=== PATIENT | male | born 1985 | race American Indian/Alaskan Native ===

== ENCOUNTER 2017-09-04 13:04 | Emergency (ER) | payer OTHER ==
[2017-09-04 13:21] VITALS: BP 106/63
[2017-09-04] MEDS ORDERED: TORADOL IM ONE (14:35)
--- NOTE | 2017-09-04 14:37 | Emergency Department Report ---
ED Upper Extremity Inj HPI - General Chief Complaint: Extremity Injury, Upper Stated Complaint: RIGHT ARM INJURY Time Seen by Provider: 09/04/17 14:22 Source: patient Mode of arrival: Ambulatory Limitations: No Limitations - History of Present Illness Initial Comments: 32-year-old male with no significant past medical history presents to the hospital complaining of continued pain and swelling to right forearm. 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 Patient was able to slip his arm out before the car fell all the way on his arm but did sustain an abrasion to the right forearm. Patient states he' s taking Tylenol but still has pain and localized swelling to this area. Full range of motion reported. Patient is left-hand dominant. Pain is rated 6/10 in intensity, aching, constant, worse palpation and movement. - Related Data Previous Rx's Medication Instructions Recorded Last Taken Type Acetaminophen/Codeine [Tylenol #3] 1 tab PO Q6H PRN #15 tab 06/12/15 Unknown Rx Ibuprofen [Motrin 800 MG tab] 800 mg PO Q8HR PRN #30 tablet 06/12/15 Unknown Rx Sulfamethoxazole/Trimethoprim 1 each PO BID #20 tablet 06/12/15 Unknown Rx [Bactrim DS TAB] Ibuprofen [Motrin] 600 mg PO Q8H PRN #30 tablet 09/04/17 Unknown Rx Allergies Allergy/AdvReac Type Severity Reaction Status Date / Time No Known Allergies Allergy Verified 06/12/15 17:40 ED Review of Systems ROS: Stated complaint: RIGHT ARM INJURY Other details as noted in HPI Comment: All other systems reviewed and negative ED Past Medical Hx - Past Medical History Previous Medical History?: No - Surgical History Past Surgical History?: No - Social History Smoking Status: Current Every Day Smoker Substance Use Type: Marijuana - Medications Home Medications: Home Medications Medication Instructions Recorded Confirmed Last Taken Type Acetaminophen/Codeine [Tylenol #3] 1 tab PO Q6H PRN #15 tab 06/12/15 Unknown Rx Ibuprofen [Motrin 800 MG tab] 800 mg PO Q8HR PRN #30 tablet 06/12/15 Unknown Rx Sulfamethoxazole/Trimethoprim 1 each PO BID #20 tablet 06/12/15 Unknown Rx [Bactrim DS TAB] Ibuprofen [Motrin] 600 mg PO Q8H PRN #30 tablet 09/04/17 Unknown Rx ED Physical Exam - General Limitations: No Limitations - Other Other exam information: General: No limitations, patient is alert in no acute distress Head exam: Atraumatic, normocephalic Eyes exam: Normal appearance ENT: Moist mucous membrane, normal oropharynx Neck exam: Normal inspection, full range of motion, no meningismus nontender Respiratory exam: Clear to auscultation bilateral, no wheezes, rales, crackles Cardiovascular: Normal rate and rhythm, normal heart sounds Abdomen: Soft, nondistended, and nontender, with normal bowel sounds, no rebound, or guarding Extremity: Full range of motion without difficulty or pain, no deformity, localized swelling to right forearm area of abrasion without signs of erythema, warmth, or drainage. Back: Normal Inspection, full range of motion, no tenderness Neurologic: Alert, oriented x3, cranial nerves intact, no motor or sensory deficit Psychiatric: normal affect, normal mood Skin: 5 cm superficial linear abrasion to right forearm ED Course Vital Signs 09/04/17 13:18 Temperature 99.8 F H Pulse Rate 83 Respiratory 22 Rate Blood Pressure 106/63 O2 Sat by Pulse 96 Oximetry - Reevaluation(s) Reevaluation #1: 09/04/17 14:37 Toradol for pain ED Medical Decision Making - Medical Decision Making Patient has very good range of motion without difficulty. Abrasion is superficial. No signs of cellulitis. Localized swelling suggestive of contusion. Patient has not been using ice only taken Tylenol. Patient was discharged home with forearm contusion diagnosis and further symptomatic treatment and outpatient follow-up - Differential Diagnosis contusion, abrasion, fracture Critical Care Time: No Critical care attestation.: If time is entered above; I have spent that time in minutes in the direct care of this critically ill patient, excluding procedure time. ED Disposition Clinical Impression: Abrasion of skin, Contusion of right forearm Disposition: DC-01 TO HOME OR SELFCARE Is pt being admited?: No Does the pt Need Aspirin: No Condition: Stable Instructions: Contusion in Adults (ED), Abrasion (ED) Additional Instructions: Take the medication as prescribed. Follow-up with the primary care doctor or clinic provided. Return is symptoms worsen as indicated by your discharge instructions. Prescriptions: Ibuprofen [Motrin] 600 mg PO Q8H PRN #30 tablet PRN Reason: Pain Referrals: [facility] [Provider Group] - 3-5 Days (Primary care clinic) ASIA ABREU MD [Staff Physician] - 3-5 Days (Primary care doctor) Time of Disposition: 14:39
== END 2017-09-04 14:50 | disposition home or self-care (01) ==
LOC: ED 13:04
DX: S50.11XA Contusion of right forearm, initial encounter (principal); F12.90 Cannabis use, unspecified, uncomplicated; F17.200 Nicotine dependence, unspecified, uncomplicated; X58.XXXA Exposure to other specified factors, initial encounter; Y93.89 Activity, other specified; Y99.8 Other external cause status; Y92.89 Other specified places as the place of occurrence of the external cause
CPT/HCPCS: 96372; 99282; J1885

== ENCOUNTER 2018-08-27 10:30 | Emergency (ER) | payer OTHER ==
--- NOTE | 2018-08-27 11:24 | Emergency Department Report ---
Blank Doc - Documentation Documentation: pt states he feels constipated states had one small BM today +periumbilical abd pain +n/v- one episode has not taken anything No PMHx no allergies +smoker non drinker +marijuana
[2018-08-27 11:25] VITALS: BP 122/73
[2018-08-27] MEDS ORDERED: ZOFRAN ODT PO ONE (11:57)
--- NOTE | 2018-08-27 12:11 | XRay Report ---
ABDOMEN, 2 views: History: Constipation. There is no evidence of free air beneath the diaphragms. The gas pattern within the abdomen is unremarkable. There is no evidence of bowel dilatation, significant air-fluid levels, or pathologic calcifications. Organ shadows are unremarkable. IMPRESSION: Unremarkable abdomen.
--- NOTE | 2018-08-27 12:30 | Emergency Department Report ---
Vomiting/Diarrhea - HPI Chief Complaint: Abdominal Pain Stated Complaint: CONSTIPATED Time Seen by Provider: 08/27/18 11:23 Duration: 5 Days Severity: moderate Nausea/Vomiting Severity: Mild Diarrhea Severity: Moderate Pain Severity: None Symptoms: Yes Watery Diarrhea (patient initially started for constipation however the patient mentioned that he was constipating on himself. When asked for clarification patient states he is constipating a lot. Newly the patient is describing diarrhea at this time), Yes Able to Tolerate Fluids, No Bloody diarrhea, No Fever, No Recent Unusual Foods, No Recent Untreated Water, No Recent use of Antibiotics, No Family w/ Similar Symptoms, No Contacts w/ Similar Symptoms, No Rash, No Hematuria, No Recent URI Symptoms ED Review of Systems ROS: Stated complaint: CONSTIPATED Other details as noted in HPI Comment: All other systems reviewed and negative ED Past Medical Hx - Past Medical History Previous Medical History?: No - Surgical History Past Surgical History?: No - Social History Smoking Status: Never Smoker Substance Use Type: None - Medications Home Medications: Home Medications Medication Instructions Recorded Confirmed Last Taken Type Acetaminophen/Codeine [Tylenol #3] 1 tab PO Q6H PRN #15 tab 06/12/15 Unknown Rx Ibuprofen [Motrin 800 MG tab] 800 mg PO Q8HR PRN #30 tablet 06/12/15 Unknown Rx Sulfamethoxazole/Trimethoprim 1 each PO BID #20 tablet 06/12/15 Unknown Rx [Bactrim DS TAB] Ibuprofen [Motrin] 600 mg PO Q8H PRN #30 tablet 09/04/17 Unknown Rx Dicyclomine [Bentyl] 20 mg PO QID #10 tablet 08/27/18 Unknown Rx Diphenoxylate/Atropine [Lomotil] 1 tab PO Q4H PRN #10 tablet 08/27/18 Unknown Rx Ondansetron [Zofran Odt] 4 mg PO Q8HR #10 tab.rapdis 08/27/18 Unknown Rx Vomiting Diarrhea Exam - Exam General: Vital signs noted. No distress. Alert and acting appropriately. HEENT: Yes Moist Mucous Membranes, No Pharyngeal Erythema, No Pharyngeal Exudates, No Rhinorrhea, No Conjuctival Injection, No Frontal Tenderness, No Maxillary Tenderness Neck: No Adenopathy, No Rigidity Lungs: Yes Clear Lung Sounds, Yes Good Air Exchange, No Wheezes, No Stridor, No Cough, No Nasal Flaring, No Retractions, No Use of Accessory Muscles Heart exam: Regular: Yes, Murmur: No, Tachycardia: No Abdomen: Tenderness: No, Peritoneal Signs: No, Distention: No, Hyperactive Bowel sounds: No Skin exam: Rash: No, Edema: No, Normal turgor: Yes Neurologic: Alert and oriented, no deficits. Musculoskeletal: Unremarkable. ED Course Vital Signs 08/27/18 08/27/18 11:23 12:10 Temperature 98 F Pulse Rate 78 Respiratory 18 16 Rate Blood Pressure 122/73 O2 Sat by Pulse 100 Oximetry ED Medical Decision Making - Radiology Data [facility] [address] [place] [address] XRay Report Signed Patient: LIANET BURROWS MR#: [id number] : 1985 Acct:[id number] Age/Sex: 33 / M ADM Date: 08/27/18 Loc: ED Attending Dr: Ordering Physician: RAMÍREZ PRAKASH Date of Service: 08/27/18 Procedure(s): XR abdomen 2V Accession Number(s): [id number] cc: RAMÍREZ PRAKASH Fluoro Time In Minutes: ABDOMEN, 2 views: History: Constipation. There is no evidence of free air beneath the diaphragms. The gas pattern within the abdomen is unremarkable. There is no evidence of bowel dilatation, significant air-fluid levels, or pathologic calcifications. Organ shadows are unremarkable. IMPRESSION: Unremarkable abdomen. Transcribed By: TTR Dictated By: DONATO PERALTA JR, MD Electronically Authenticated By: DONATO PERALTA JR, MD Signed Date/Time: 08/27/18 1206 DD/ 1205 TD/TT: 08/27/18 1206 - Medical Decision Making Patient with several days of diarrhea and one episode of nausea vomiting today. Patient given meds for symptomatic relief. Patient has no abdominal pain has normal bowel sounds and no abdominal distention. Patient is afebrile. Patient likely with irritation from something that he's eaten or viral gastroenteritis Critical care attestation.: If time is entered above; I have spent that time in minutes in the direct care of this critically ill patient, excluding procedure time. ED Disposition Clinical Impression: Viral gastroenteritis Disposition: DC-01 TO HOME OR SELFCARE Is pt being admited?: No Does the pt Need Aspirin: No Condition: Stable Instructions: Gastroenteritis (ED) Referrals: SHANIQUE ASKEW MD [Referring] - 3-5 Days Time of Disposition: 12:29
== END 2018-08-27 12:39 | disposition home or self-care (01) ==
LOC: ED 10:30
DX: A08.4 Viral intestinal infection, unspecified (principal)
CPT/HCPCS: 74019; 99283; Q0162

== ENCOUNTER 2018-10-24 11:08 | Emergency (ER) | payer OTHER ==
--- NOTE | 2018-10-24 11:17 | Event Note ---
ED Screening Note Date of service: 10/24/18 Time: 11:14 ED Screening Note: This is a 33 y.o. M. that presents to the ER with dysuria & penile discharge since yesterday. Denies abdominal pain, back pain, fever, chills, testicular swelling or pain. This initial assessment/diagnostic orders/clinical plan/treatment(s) is/are subject to change based on patients health status, clinical progression and re- assessment by fellow clinical providers in the ED. Further treatment and workup at subsequent clinical providers discretion. Patient/guardian urged not to elope from the ED as their condition may be serious if not clinically assessed and managed. Initial orders include: UA & GC
[2018-10-24 11:18] VITALS: BP 120/67
--- NOTE | 2018-10-24 11:49 | Emergency Department Report ---
Chief Complaint: Urogenital-Male Stated Complaint: DISCHARGE Time Seen by Provider: 10/24/18 11:14 - HPI History of Present Illness: This is a 33-year-old male healthy looking normal prior medical history presents easy stating that he thinks may have exposed to STD. Patient presents with white penile discharge that he states he noticed yesterday. Patient denies serious fistula/nausea vomiting this abdominal pain/pelvic pain/dysuria/testicular pain and swelling - ROS Review of Systems: As noted in HPI - Exam Vital Signs: Vital Signs 10/24/18 11:14 Temperature 97.9 F Pulse Rate 76 Respiratory 18 Rate Blood Pressure 120/67 [Right] O2 Sat by Pulse 98 Oximetry Physical Exam: General: No acute distress noted. MSE screening note: Focused history and physical exam performed. Due to findings the following was ordered: ED Medical Decision Making - Medical Decision Making 33-year-old male presents for STD screening I discussed the patient this is not a medical emergency and he can be seen at [facility]. Patient will go to [facility] to be evaluated. Patient states that he will call and follow-up. Pamphlet given the patient to follow-up ED Disposition for MSE Clinical Impression: Screening for STD (sexually transmitted disease) Disposition: Z-07 MED SCREENING EXAM-LEFT Is pt being admited?: No Does the pt Need Aspirin: No Condition: Stable Instructions: Sexually Transmitted Diseases (ED), Safe Sex (ED) Additional Instructions: Follow-up with [facility] for STD screening Referrals: MILTON FERRARA MD [Primary Care Provider] - 3-5 Days [facility] [Outside] - 3-5 Days [facility] [Outside] - 3-5 Days Forms: Work/School Release Form(ED) Time of Disposition: 11:46
== END 2018-10-24 11:54 | disposition left against medical advice (07) ==
LOC: ED 11:08
DX: R36.9 Urethral discharge, unspecified (principal); Z11.3 Encounter for screening for infections with a predominantly sexual mode of transmission
CPT/HCPCS: 99281

== ENCOUNTER 2018-12-30 02:54 | Emergency (ER) | payer OTHER ==
[2018-12-30 03:36] LABS: Basophils % (Auto) 0.6 % (0.0-1.8); Eosinophils % (Auto) 0.4 % (0.0-4.3); Hematocrit 44.8 % (35.5-45.6); Hemoglobin 14.9 gm/dl (11.8-15.2); Lymphocytes # (Auto) 1.6 K/mm3 (1.2-5.4); Lymphocytes % (Auto) 23.6 % (13.4-35.0); Mean Corpuscular HGB Conc 33 % (32-34); Mean Corpuscular Volume 89 fl (84-94); Monocytes # (Auto) 0.6 K/mm3 (0.0-0.8); Monocytes % (Auto) 8.7 % (0.0-7.3); Platelet Count 186 K/mm3 (140-440); Red Blood Count 5.03 M/mm3 (3.65-5.03); Red Cell Distribution Width 13.8 % (13.2-15.2)
[2018-12-30 03:40] LABS: Bilirubin,Urine NEG (Negative); Blood,Urine SM (Negative); Color,Urine Straw (Yellow); Protein,Urine <15 mg/dL mg/dL (Negative); Urobilinogen,Urine < 2.0 mg/dL (<2.0); WBC,Urine < 1.0 /HPF (0.0-6.0)
[2018-12-30 03:41] LABS: RBC,Urine < 1.0 /HPF (0.0-6.0)
[2018-12-30 03:51] LABS: Alanine Aminotransferase 22 units/L (7-56); Albumin 4.4 g/dL (3.9-5); BUN/Creatinine Ratio 9; Blood Urea Nitrogen 9 mg/dL (9-20); Calcium 8.8 mg/dL (8.4-10.2); Hemolysis Index 9
[2018-12-30] MEDS ORDERED: DICYCLOMINE 20 MG TAB PO ONE (05:41)
[2018-12-30] MEDS ORDERED: FAMOTIDINE 20 MG TAB PO ONE (05:41)
[2018-12-30] MEDS ORDERED: ONDANSETRON 4 MG ODT TAB PO ONE (05:41)
--- NOTE | 2018-12-30 06:11 | Emergency Department Report ---
ED N/V/D HPI - General Chief complaint: Abdominal Pain Stated complaint: VOMITING FOR 2 DAYS Source: patient Mode of arrival: Ambulatory Limitations: No Limitations - History of Present Illness Initial comments: Patient is a 33-year-old -[place] male with no past medical history who presents to the ED with complaint of acute onset persistent nausea, vomiting and mildly diffuse abdominal pain for the last 12 hours after eating at a restaurant. Patient states that the pain is mild but in nausea and vomiting has been persistent and intermittent. Patient states that the last time he had nausea and vomiting episode was over 6 hours ago. Patient denies fever, chills, diarrhea, chest pain, shortness of breath, dizziness, syncope, cough, dysuria, urinary frequency and urgency, hematemesis or hematochezia. MD complaint: nausea, vomiting, abdominal pain -: Sudden, hour(s) (12) Description of Vomiting: food contents Associated Abdominal Pain: Yes (MILDLY DIFFUSE) Location: diffuse Radiation: none Severity: mild Pain Scale: 1 Quality: aching, dull Consistency: intermittent Improves with: none Worsens with: none Context: possible food poisoning Associated Symptoms: denies other symptoms, loss of appetite, nausea/vomiting. denies: myalgias, cough, diaphoresis, fever/chills, headaches, malaise, shortness of breath, syncope - Related Data Previous Rx's Medication Instructions Recorded Last Taken Type Acetaminophen/Codeine [Tylenol #3] 1 tab PO Q6H PRN #15 tab 06/12/15 Unknown Rx Ibuprofen [Motrin 800 MG tab] 800 mg PO Q8HR PRN #30 tablet 06/12/15 Unknown Rx Sulfamethoxazole/Trimethoprim 1 each PO BID #20 tablet 06/12/15 Unknown Rx [Bactrim DS TAB] Ibuprofen [Motrin] 600 mg PO Q8H PRN #30 tablet 09/04/17 Unknown Rx Diphenoxylate/Atropine [Lomotil] 1 tab PO Q4H PRN #10 tablet 08/27/18 Unknown Rx Dicyclomine [Bentyl] 20 mg PO Q6H PRN #20 tablet 12/30/18 Unknown Rx Ondansetron [Zofran ODT TAB] 4 mg PO Q6HR PRN #20 tab.rapdis 12/30/18 Unknown Rx raNITIdine HCl [Zantac] 150 mg PO Q12H #20 tablet 12/30/18 Unknown Rx Allergies Allergy/AdvReac Type Severity Reaction Status Date / Time No Known Allergies Allergy Verified 10/24/18 11:16 ED Review of Systems ROS: Stated complaint: VOMITING FOR 2 DAYS Other details as noted in HPI Constitutional: denies: chills, fever Eyes: denies: eye pain, eye discharge, vision change ENT: denies: ear pain, throat pain Respiratory: denies: cough, shortness of breath, wheezing Cardiovascular: denies: chest pain, palpitations Endocrine: no symptoms reported Gastrointestinal: abdominal pain, nausea, vomiting. denies: diarrhea Genitourinary: denies: urgency, dysuria Musculoskeletal: denies: back pain, joint swelling, arthralgia Skin: denies: rash, lesions Neurological: denies: headache, weakness, paresthesias Psychiatric: denies: anxiety, depression Hematological/Lymphatic: denies: easy bleeding, easy bruising ED Past Medical Hx - Past Medical History Previous Medical History?: No - Surgical History Past Surgical History?: No - Social History Smoking Status: Current Every Day Smoker Substance Use Type: None, Marijuana - Medications Home Medications: Home Medications Medication Instructions Recorded Confirmed Last Taken Type Acetaminophen/Codeine [Tylenol #3] 1 tab PO Q6H PRN #15 tab 06/12/15 Unknown Rx Ibuprofen [Motrin 800 MG tab] 800 mg PO Q8HR PRN #30 tablet 06/12/15 Unknown Rx Sulfamethoxazole/Trimethoprim 1 each PO BID #20 tablet 06/12/15 Unknown Rx [Bactrim DS TAB] Ibuprofen [Motrin] 600 mg PO Q8H PRN #30 tablet 09/04/17 Unknown Rx Diphenoxylate/Atropine [Lomotil] 1 tab PO Q4H PRN #10 tablet 08/27/18 Unknown Rx Dicyclomine [Bentyl] 20 mg PO Q6H PRN #20 tablet 12/30/18 Unknown Rx Ondansetron [Zofran ODT TAB] 4 mg PO Q6HR PRN #20 tab.rapdis 12/30/18 Unknown Rx raNITIdine HCl [Zantac] 150 mg PO Q12H #20 tablet 12/30/18 Unknown Rx ED Physical Exam - General Limitations: No Limitations General appearance: alert, in no apparent distress - Head Head exam: Present: atraumatic, normocephalic, normal inspection - Eye Eye exam: Present: normal appearance, PERRL, EOMI Pupils: Present: normal accommodation - ENT ENT exam: Present: normal exam, normal orophraynx, mucous membranes moist, TM's normal bilaterally, normal external ear exam - Neck Neck exam: Present: normal inspection, full ROM - Respiratory Respiratory exam: Present: normal lung sounds bilaterally. Absent: respiratory distress, wheezes, chest wall tenderness, accessory muscle use, decreased breath sounds - Cardiovascular Cardiovascular Exam: Present: regular rate, normal rhythm, normal heart sounds. Absent: systolic murmur, diastolic murmur, rubs, gallop - GI/Abdominal GI/Abdominal exam: Present: soft, normal bowel sounds. Absent: tenderness, guarding, hyperactive bowel sounds - Rectal Rectal exam: Present: deferred - Extremities Exam Extremities exam: Present: normal inspection, full ROM, normal capillary refill - Back Exam Back exam: Present: normal inspection, full ROM. Absent: CVA tenderness (L), muscle spasm, paraspinal tenderness, vertebral tenderness - Neurological Exam Neurological exam: Present: alert, oriented X3, CN II-XII intact, normal gait, reflexes normal - Psychiatric Psychiatric exam: Present: normal affect, normal mood - Skin Skin exam: Present: warm, dry, intact, normal color. Absent: rash ED Course Vital Signs 12/30/18 03:10 Temperature 99.0 F Pulse Rate 85 Respiratory 16 Rate Blood Pressure 105/65 O2 Sat by Pulse 96 Oximetry - Reevaluation(s) Reevaluation #1: 12/30/18 06:13 This is a 33-year-old male who presented to the ED with complaint of persistent intermittent nausea and vomiting with mild diffuse abdominal pain for 12 hours. In the ED, patient is alert and oriented 3 and is not in distress. Lab test results were reviewed and are all unremarkable. Physical exam is unremarkable. Patient was treated with antiemetics in the ED and past oral fluid challenge. Patient playing videogames during the physical exam without making any eye contact with the Healthcare provider but answers questions appropriately. Patient was discharged home on antiemetics and advised follow-up with his primary care physician in 7-10 days for reevaluation. Patient was advised to return to the ED immediately if symptoms get worse. ED Medical Decision Making - Lab Data Result diagrams: 12/30/18 03:05 12/30/18 03:05 - Medical Decision Making This is a 33-year-old male who presented to the ED with complaint of persistent intermittent nausea and vomiting with mild diffuse abdominal pain for 12 hours. In the ED, patient is alert and oriented 3 and is not in distress. Lab test results were reviewed and are all unremarkable. Physical exam is unremarkable. Patient was treated with antiemetics in the ED and past oral fluid challenge. Patient playing videogames during the physical exam without making any eye contact with the Healthcare provider but answers questions appropriately. Patient was discharged home on antiemetics and advised follow-up with his [facility] physician in 7-10 days for reevaluation. Patient was advised to return to the ED immediately if symptoms get worse. - Differential Diagnosis viral gastroenteritis, vomiting, abdominal pain, dehydration Critical care attestation.: If time is entered above; I have spent that time in minutes in the direct care of this critically ill patient, excluding procedure time. ED Disposition Clinical Impression: Nausea and vomiting in adult, Viral gastroenteritis Abdominal pain Qualifiers: Abdominal location: generalized Qualified Code(s): R10.84 - Generalized abdominal pain Disposition: TO HOME OR SELFCARE Is pt being admited?: No Does the pt Need Aspirin: No Condition: Stable Instructions: Gastroenteritis (ED), Acute Nausea and Vomiting (ED) Additional Instructions: Maintain a clear liquid diet for the next 12-24 hours. Take medication with food, drink plenty of fluids and follow-up with your primary care physician in 7-10 days for reevaluation. Return to the ED immediately if symptoms get worse. Prescriptions: Dicyclomine [Bentyl] 20 mg PO Q6H PRN #20 tablet PRN Reason: Pain , Severe (7-10) raNITIdine HCl [Zantac] 150 mg PO Q12H #20 tablet Ondansetron [Zofran ODT TAB] 4 mg PO Q6HR PRN #20 tab.rapdis PRN Reason: Nausea Referrals: SHANIQUE ASKEW MD [Primary Care Provider] - 3-5 Days Time of Disposition: 06:09 Print Language: ROMANIAN
[2018-12-30 06:30] VITALS: BP 112/78
== END 2018-12-30 06:30 | disposition home or self-care (01) ==
LOC: ED 02:54
DX: A08.4 Viral intestinal infection, unspecified (principal); F17.200 Nicotine dependence, unspecified, uncomplicated; F12.10 Cannabis abuse, uncomplicated; Z79.899 Other long term (current) drug therapy
CPT/HCPCS: 36415; 80053; 81001; 83690; 85025; Q0162

== ENCOUNTER 2019-05-18 08:38 | Emergency (ER) | payer OTHER ==
[2019-05-18 08:57] VITALS: BP 123/79
[2019-05-18] MEDS ORDERED: ONDANSETRON 4 MG/2 ML INJ IV ONE (10:54)
[2019-05-18] MEDS ORDERED: SODIUM CHLORIDE 0.9% 1000 ML 1,000 ML IV ONE (10:54)
--- NOTE | 2019-05-18 10:59 | Emergency Department Report ---
ED N/V/D HPI - General Chief complaint: Nausea/Vomiting/Diarrhea Stated complaint: VOMITING/CONSTIPATION Time Seen by Provider: 05/18/19 10:48 Source: patient Mode of arrival: Ambulatory Limitations: No Limitations - History of Present Illness Initial comments: 34-year-old -[place] male patient without significant past medical history presents with complaints of nausea/vomiting/diarrhea x4 days. Patient states episodes only occur with food intake. He denies any hematemesis/coffee- ground emesis, melena/hematochezia, abdominal pain, fever/chills/sweats, dysuria/hematuria/urinary frequency, heavy alcohol intake, or history of abdominal surgeries. Patient states overall he feels well, just a little dehydrated. He denies any previous history of GI issues. MD complaint: nausea, vomiting, diarrhea -: Sudden Description of Vomiting: watery Description of Diarrhea: water - Related Data Previous Rx's Medication Instructions Recorded Last Taken Type Acetaminophen/Codeine [Tylenol #3] 1 tab PO Q6H PRN #15 tab 06/12/15 Unknown Rx Ibuprofen [Motrin 800 MG tab] 800 mg PO Q8HR PRN #30 tablet 06/12/15 Unknown Rx Sulfamethoxazole/Trimethoprim 1 each PO BID #20 tablet 06/12/15 Unknown Rx [Bactrim DS TAB] Ibuprofen [Motrin] 600 mg PO Q8H PRN #30 tablet 09/04/17 Unknown Rx Diphenoxylate/Atropine [Lomotil] 1 tab PO Q4H PRN #10 tablet 08/27/18 Unknown Rx Dicyclomine [Bentyl] 20 mg PO Q6H PRN #20 tablet 12/30/18 Unknown Rx Ondansetron [Zofran ODT TAB] 4 mg PO Q6HR PRN #20 tab.rapdis 12/30/18 Unknown Rx raNITIdine HCl [Zantac] 150 mg PO Q12H #20 tablet 12/30/18 Unknown Rx Ondansetron [Zofran Odt] 4 mg PO Q8HR PRN #15 tab.rapdis 05/18/19 Unknown Rx Allergies Allergy/AdvReac Type Severity Reaction Status Date / Time No Known Allergies Allergy Verified 10/24/18 11:16 ED Review of Systems ROS: Stated complaint: VOMITING/CONSTIPATION Other details as noted in HPI Constitutional: denies: chills, fever ENT: throat pain Respiratory: denies: cough, shortness of breath Cardiovascular: denies: chest pain Endocrine: denies: excessive sweating, flushing Gastrointestinal: nausea, vomiting, diarrhea. denies: abdominal pain Genitourinary: denies: urgency, frequency, hematuria Musculoskeletal: denies: back pain Skin: denies: rash, lesions Neurological: denies: headache, weakness, paresthesias Hematological/Lymphatic: denies: swollen glands ED Past Medical Hx - Past Medical History Previous Medical History?: No - Surgical History Past Surgical History?: No - Social History Smoking Status: Current Every Day Smoker Substance Use Type: None, Marijuana - Medications Home Medications: Home Medications Medication Instructions Recorded Confirmed Last Taken Type Acetaminophen/Codeine [Tylenol #3] 1 tab PO Q6H PRN #15 tab 06/12/15 Unknown Rx Ibuprofen [Motrin 800 MG tab] 800 mg PO Q8HR PRN #30 tablet 06/12/15 Unknown Rx Sulfamethoxazole/Trimethoprim 1 each PO BID #20 tablet 06/12/15 Unknown Rx [Bactrim DS TAB] Ibuprofen [Motrin] 600 mg PO Q8H PRN #30 tablet 09/04/17 Unknown Rx Diphenoxylate/Atropine [Lomotil] 1 tab PO Q4H PRN #10 tablet 08/27/18 Unknown Rx Dicyclomine [Bentyl] 20 mg PO Q6H PRN #20 tablet 12/30/18 Unknown Rx Ondansetron [Zofran ODT TAB] 4 mg PO Q6HR PRN #20 tab.rapdis 12/30/18 Unknown Rx raNITIdine HCl [Zantac] 150 mg PO Q12H #20 tablet 12/30/18 Unknown Rx Ondansetron [Zofran Odt] 4 mg PO Q8HR PRN #15 tab.rapdis 05/18/19 Unknown Rx ED Physical Exam - General Limitations: No Limitations General appearance: alert, in no apparent distress - Head Head exam: Present: atraumatic, normocephalic - Eye Eye exam: Present: normal appearance - ENT ENT exam: Present: mucous membranes moist - Expanded ENT Exam Expanded Mouth exam: Absent: drooling, trismus, muffled voice Throat exam: Positive: tonsillar erythema. Negative: tonsillomegaly, tonsillar exudate, R peritonsillar mass, L peritonsillar mass - Neck Neck exam: Present: normal inspection - Respiratory Respiratory exam: Present: normal lung sounds bilaterally. Absent: respiratory distress - Cardiovascular Cardiovascular Exam: Present: regular rate, normal rhythm. Absent: systolic murmur, diastolic murmur, rubs, gallop - GI/Abdominal GI/Abdominal exam: Present: soft, normal bowel sounds. Absent: distended, tenderness, guarding, rebound - Rectal Rectal exam: Present: deferred - Extremities Exam Extremities exam: Present: normal inspection - Back Exam Back exam: Present: full ROM - Neurological Exam Neurological exam: Present: alert, oriented X3 - Psychiatric Psychiatric exam: Present: normal affect, normal mood - Skin Skin exam: Present: warm, dry, intact, normal color. Absent: rash ED Course Vital Signs 05/18/19 08:56 Temperature 98.4 F Pulse Rate 78 Respiratory 16 Rate Blood Pressure 123/79 [Right] O2 Sat by Pulse 98 Oximetry ED Medical Decision Making - Lab Data Result diagrams: 05/18/19 11:07 05/18/19 11:07 Lab Results 05/18/19 05/18/19 05/18/19 Range/Units 11:07 11:07 11:07 WBC 7.9 (4.5-11.0) K/mm3 RBC 4.82 (3.65-5.03) M/mm3 Hgb 14.0 (11.8-15.2) gm/dl Hct 43.1 (35.5-45.6) % MCV 89 (84-94) fl MCH 29 (28-32) pg MCHC 33 (32-34) % RDW 14.6 (13.2-15.2) % Plt Count 237 (140-440) K/mm3 Lymph % (Auto) 20.2 (13.4-35.0) % Real % (Auto) 7.7 H (0.0-7.3) % Eos % (Auto) 0.7 (0.0-4.3) % Baso % (Auto) 0.6 (0.0-1.8) % Lymph # 1.6 (1.2-5.4) K/mm3 Real # 0.6 (0.0-0.8) K/mm3 Eos # 0.1 (0.0-0.4) K/mm3 Baso # 0.0 (0.0-0.1) K/mm3 Seg Neutrophils % 70.8 H (40.0-70.0) % Seg Neutrophils # 5.6 (1.8-7.7) K/mm3 Sodium 142 (137-145) mmol/L Potassium 4.2 (3.6-5.0) mmol/L Chloride 102.9 (98-107) mmol/L Carbon Dioxide 25 (22-30) mmol/L Anion Gap 18 mmol/L BUN 8 L (9-20) mg/dL Creatinine 0.8 (0.8-1.5) mg/dL Estimated GFR > 60 ml/min BUN/Creatinine Ratio 10 % Glucose 94 (75-100) mg/dL Calcium 9.0 (8.4-10.2) mg/dL Total Bilirubin 0.30 (0.1-1.2) mg/dL Direct Bilirubin < 0.2 (0-0.2) mg/dL AST 15 (5-40) units/L ALT 14 (7-56) units/L Alkaline Phosphatase 86 (35-129) units/L Total Protein 7.2 (6.3-8.2) g/dL Albumin 3.9 (3.9-5) g/dL Albumin/Globulin Ratio 1.2 % Lipase 32 (13-60) units/L Urine Color (Yellow) Urine Turbidity (Clear) Urine pH (5.0-7.0) Ur Specific [place] (1.003-1.030) Urine Protein (Negative) mg/dL Urine Glucose (UA) (Negative) mg/dL Urine Ketones (Negative) mg/dL Urine Blood (Negative) Urine Nitrite (Negative) Urine Bilirubin (Negative) Urine Urobilinogen (<2.0) mg/dL Ur Leukocyte Esterase (Negative) Urine WBC (Auto) (0.0-6.0) /HPF Urine RBC (Auto) (0.0-6.0) /HPF Group A Strep Rapid (Negative) 05/18/19 05/18/19 Range/Units Unknown Unknown WBC (4.5-11.0) K/mm3 RBC (3.65-5.03) M/mm3 Hgb (11.8-15.2) gm/dl Hct (35.5-45.6) % MCV (84-94) fl MCH (28-32) pg MCHC (32-34) % RDW (13.2-15.2) % Plt Count (140-440) K/mm3 Lymph % (Auto) (13.4-35.0) % Real % (Auto) (0.0-7.3) % Eos % (Auto) (0.0-4.3) % Baso % (Auto) (0.0-1.8) % Lymph # (1.2-5.4) K/mm3 Real # (0.0-0.8) K/mm3 Eos # (0.0-0.4) K/mm3 Baso # (0.0-0.1) K/mm3 Seg Neutrophils % (40.0-70.0) % Seg Neutrophils # (1.8-7.7) K/mm3 Sodium (137-145) mmol/L Potassium (3.6-5.0) mmol/L Chloride (98-107) mmol/L Carbon Dioxide (22-30) mmol/L Anion Gap mmol/L BUN (9-20) mg/dL Creatinine (0.8-1.5) mg/dL Estimated GFR ml/min BUN/Creatinine Ratio % Glucose (75-100) mg/dL Calcium (8.4-10.2) mg/dL Total Bilirubin (0.1-1.2) mg/dL Direct Bilirubin (0-0.2) mg/dL AST (5-40) units/L ALT (7-56) units/L Alkaline Phosphatase (35-129) units/L Total Protein (6.3-8.2) g/dL Albumin (3.9-5) g/dL Albumin/Globulin Ratio % Lipase (13-60) units/L Urine Color Colorless (Yellow) Urine Turbidity Clear (Clear) Urine pH 8.0 H (5.0-7.0) Ur Specific [place] 1.008 (1.003-1.030) Urine Protein <15 mg/dl (Negative) mg/dL Urine Glucose (UA) Neg (Negative) mg/dL Urine Ketones Neg (Negative) mg/dL Urine Blood Neg (Negative) Urine Nitrite Neg (Negative) Urine Bilirubin Neg (Negative) Urine Urobilinogen < 2.0 (<2.0) mg/dL Ur Leukocyte Esterase Neg (Negative) Urine WBC (Auto) 1.0 (0.0-6.0) /HPF Urine RBC (Auto) 2.0 (0.0-6.0) /HPF Group A Strep Rapid Negative (Negative) - Medical Decision Making Patient here for nausea vomiting and diarrhea for several days. He denies any red flag symptoms. CBC, CMP, and UA are normal. His vitals are normal. After 1 L of fluids and Zofran patient is tolerating fluids and fluids orally. No vomiting observed here in the ED during patient stay. He is nontoxic-appearing and stable for discharge home. Will treat for viral gastroenteritis. Recommend follow-up with primary care provider within 3 to 5 days. Discussed strict return precautions in great detail with patient who verbalizes understanding. Critical care attestation.: If time is entered above; I have spent that time in minutes in the direct care of this critically ill patient, excluding procedure time. ED Disposition Clinical Impression: Gastroenteritis Disposition: DC-01 TO HOME OR SELFCARE Is pt being admited?: No Condition: Stable Instructions: Gastroenteritis (ED) Prescriptions: Ondansetron [Zofran Odt] 4 mg PO Q8HR PRN #15 tab.rapdis PRN Reason: Nausea Referrals: MILTON FERRARA MD [Staff Physician] - 3-5 Days Forms: Work/School Release Form(ED)
[2019-05-18 11:50] LABS: Basophils % (Auto) 0.6 % (0.0-1.8); Eosinophils # (Auto) 0.1 K/mm3 (0.0-0.4); Eosinophils % (Auto) 0.7 % (0.0-4.3); Hematocrit 43.1 % (35.5-45.6); Lymphocytes # (Auto) 1.6 K/mm3 (1.2-5.4); Lymphocytes % (Auto) 20.2 % (13.4-35.0); Mean Corpuscular HGB Conc 33 % (32-34); Mean Corpuscular Volume 89 fl (84-94); Monocytes # (Auto) 0.6 K/mm3 (0.0-0.8); Monocytes % (Auto) 7.7 % (0.0-7.3); Platelet Count 237 K/mm3 (140-440); Red Blood Count 4.82 M/mm3 (3.65-5.03); Red Cell Distribution Width 14.6 % (13.2-15.2)
[2019-05-18 12:01] LABS: Bilirubin,Urine NEG (Negative); Blood,Urine NEG (Negative); Color,Urine Colorless (Yellow); Protein,Urine <15 mg/dL mg/dL (Negative); Urobilinogen,Urine < 2.0 mg/dL (<2.0)
[2019-05-18 12:09] LABS: Alanine Aminotransferase 14 units/L (7-56); Albumin 3.9 g/dL (3.9-5); BUN/Creatinine Ratio 10; Blood Urea Nitrogen 8 mg/dL (9-20); Hemolysis Index 2
[2019-05-18 12:11] LABS: Bilirubin,Direct < 0.2 mg/dL (0-0.2)
== END 2019-05-18 14:08 | disposition home or self-care (01) ==
LOC: ED 08:38
DX: K21.9 Gastro-esophageal reflux disease without esophagitis (principal); F17.200 Nicotine dependence, unspecified, uncomplicated; F12.10 Cannabis abuse, uncomplicated; Z79.899 Other long term (current) drug therapy
CPT/HCPCS: 36415; 80048; 80076; 81001; 83690; 85025; 87116; 87430; 96361; 96374; 99283; J2405; J7030

== ENCOUNTER 2019-05-30 14:42 | Emergency (ER) | payer OTHER ==
[2019-05-30 15:31] VITALS: BP 107/70
--- NOTE | 2019-05-30 15:36 | Emergency Department Report ---
Chief Complaint: Upper Respiratory Infection Stated Complaint: FEVER Time Seen by Provider: 05/30/19 15:28 - HPI History of Present Illness: This is a 34 y.o. M. that presents to the ER with URI symptoms for 1 week. States treated for gastroenteritis last week. States N/V/D resolved but now experiencing occasional cough and sore throat. Taking OTC cold medications. Denies fever, chills, n/v/d, abdominal pain, myalgia, chest pain, or SOB. - ROS Review of Systems: ROS: Stated complaint: URI symptoms Other details as noted in HPI Comment: All other systems reviewed and negative - Exam Vital Signs: Vital Signs 05/30/19 15:29 Temperature 98.7 F Pulse Rate 85 Respiratory 18 Rate Blood Pressure 107/70 O2 Sat by Pulse 99 Oximetry Physical Exam: - General Limitations: No Limitations General appearance: alert, in no apparent distress - Head Head exam: Present: atraumatic, normocephalic - Eye Eye exam: Present: normal appearance - ENT ENT exam: Present: mucous membranes moist - Neck Neck exam: Present: normal inspection, full ROM. Absent: lymphadenopathy - Respiratory Respiratory exam: Present: normal lung sounds bilaterally. Absent: respiratory distress - Cardiovascular Cardiovascular Exam: Present: regular rate, normal rhythm. Absent: systolic murmur, diastolic murmur, rubs, gallop - GI/Abdominal GI/Abdominal exam: Present: soft, normal bowel sounds - Extremities Exam Extremities exam: Present: normal inspection - Back Exam Back exam: Present: normal inspection - Neurological Exam Neurological exam: Present: alert, oriented X3 - Psychiatric Psychiatric exam: Present: normal affect, normal mood - Skin Skin exam: Present: warm, dry, intact, normal color. Absent: rash MSE screening note: Focused history and physical exam performed. Due to findings the following was ordered: ED Medical Decision Making - Medical Decision Making This is a 34 y.o. M. that presents to the ER with sore throat, cough, and fever for 1 week. VSS. Patient in no acute distress. Normal exam. No signs of acute trauma or infection. Diagnosed with gastroenteritis last week and denies PCP follow-up. This is a non emergent complaint. Reviewed throat culture and labs from visit last week and given normal lab results. Instructed to continue OTC medication for support. Referral to PCP for continued care. Patient discharged home with strict return instructions. ED Disposition for MSE Disposition: MED SCREENING EXAM-LEFT Is pt being admited?: No Condition: Stable Referrals: MILTON FERRARA MD [Staff Physician] - 3-5 Days [facility] [Provider Group] - 3-5 Days [facility] [Provider Group] - 3-5 Days Forms: Work/School Release Form(ED) Time of Disposition: 15:35
== END 2019-05-30 15:45 | disposition left against medical advice (07) ==
LOC: ED 14:42
DX: R05 Cough (principal); J02.9 Acute pharyngitis, unspecified; R50.9 Fever, unspecified; K52.9 Noninfective gastroenteritis and colitis, unspecified
CPT/HCPCS: 99281

== ENCOUNTER 2021-06-13 18:13 | Emergency (ER) | payer BC, OTHER ==
--- NOTE | 2021-06-14 03:52 | Emergency Department Report ---
- General Chief Complaint: Fever Stated Complaint: NOT FEELING WELL Time Seen by Provider: 06/14/21 03:04 Source: patient Mode of arrival: Ambulatory Limitations: No Limitations - History of Present Illness Initial Comments: 36-year-old male presenting emerged department complaining of fever sensations and coryza off and on for the past few days resulting in migraine flareups which she has no medication so presents emerge department seeking treatment. Reports no hemoptysis symptoms hematochezia, no nausea vomiting, no diarrhea, no no chest pain, no palpitations, no blurry vision, no loss of consciousness, no presyncope. MD Complaint: rhinorrhea -: Gradual, days(s) (3) Quality: dull Consistency: constant Improves With: nothing Worsens With: nothing Associated Symptoms: denies other symptoms - Related Data Previous Rx's Medication Instructions Recorded Last Taken Type Acetaminophen/Codeine [Tylenol #3] 1 tab PO Q6H PRN #15 tab 06/12/15 Unknown Rx Ibuprofen [Motrin 800 MG tab] 800 mg PO Q8HR PRN #30 tablet 06/12/15 Unknown Rx Sulfamethoxazole/Trimethoprim 1 each PO BID #20 tablet 06/12/15 Unknown Rx [Bactrim DS TAB] Ibuprofen [Motrin] 600 mg PO Q8H PRN #30 tablet 09/04/17 Unknown Rx Diphenoxylate/Atropine [Lomotil] 1 tab PO Q4H PRN #10 tablet 08/27/18 Unknown Rx Dicyclomine [Bentyl] 20 mg PO Q6H PRN #20 tablet 12/30/18 Unknown Rx Ondansetron [Zofran ODT TAB] 4 mg PO Q6HR PRN #20 tab.rapdis 12/30/18 Unknown Rx raNITIdine HCL [Zantac] 150 mg PO Q12H #20 tablet 12/30/18 Unknown Rx Ondansetron [Zofran Odt] 4 mg PO Q8HR PRN #15 tab.rapdis 05/18/19 Unknown Rx Butalb/Acetaminophen/Caffeine 1 cap PO Q8HR PRN #14 cap 06/14/21 Unknown Rx [Fioricet 50-300-40 mg CAP] Allergies Allergy/AdvReac Type Severity Reaction Status Date / Time No Known Allergies Allergy Verified 10/24/18 11:16 ED Review of Systems ROS: Stated complaint: NOT FEELING WELL Other details as noted in HPI Comment: All other systems reviewed and negative ED Past Medical Hx - Social History Smoking Status: Never Smoker Substance Use Type: Marijuana - Medications Home Medications: Home Medications Medication Instructions Recorded Confirmed Last Taken Type Acetaminophen/Codeine [Tylenol #3] 1 tab PO Q6H PRN #15 tab 06/12/15 Unknown Rx Ibuprofen [Motrin 800 MG tab] 800 mg PO Q8HR PRN #30 tablet 06/12/15 Unknown Rx Sulfamethoxazole/Trimethoprim 1 each PO BID #20 tablet 06/12/15 Unknown Rx [Bactrim DS TAB] Ibuprofen [Motrin] 600 mg PO Q8H PRN #30 tablet 09/04/17 Unknown Rx Diphenoxylate/Atropine [Lomotil] 1 tab PO Q4H PRN #10 tablet 08/27/18 Unknown Rx Dicyclomine [Bentyl] 20 mg PO Q6H PRN #20 tablet 12/30/18 Unknown Rx Ondansetron [Zofran ODT TAB] 4 mg PO Q6HR PRN #20 tab.rapdis 12/30/18 Unknown Rx raNITIdine HCL [Zantac] 150 mg PO Q12H #20 tablet 12/30/18 Unknown Rx Ondansetron [Zofran Odt] 4 mg PO Q8HR PRN #15 tab.rapdis 05/18/19 Unknown Rx Butalb/Acetaminophen/Caffeine 1 cap PO Q8HR PRN #14 cap 06/14/21 Unknown Rx [Fioricet 50-300-40 mg CAP] ED Physical Exam - General Limitations: No Limitations General appearance: alert, in no apparent distress - Head Head exam: Present: atraumatic, normocephalic - Eye Eye exam: Present: normal appearance, PERRL, EOMI. Absent: nystagmus Pupils: Present: other (Negative funduscopic examination) - ENT ENT exam: Present: mucous membranes moist - Neck Neck exam: Present: normal inspection - Respiratory Respiratory exam: Present: normal lung sounds bilaterally. Absent: respiratory distress - Cardiovascular Cardiovascular Exam: Present: regular rate, normal rhythm. Absent: systolic murmur, diastolic murmur, rubs, gallop - GI/Abdominal GI/Abdominal exam: Present: soft, normal bowel sounds - Rectal Rectal exam: Present: deferred - Extremities Exam Extremities exam: Present: normal inspection - Back Exam Back exam: Present: normal inspection. Absent: CVA tenderness (R) - Neurological Exam Neurological exam: Present: alert, oriented X3, CN II-XII intact, normal gait - Expanded Neurological Exam Expanded Patient oriented to: Present: person, place, time Speech: Present: fluid speech Cerebellar function: Finger to Nose: Normal Best Eye Response ([place]): (4) open spontaneously Best Motor Response ([place]): (6) obeys commands Best Verbal Response ([place]): (5) oriented [place] Total: 15 - Psychiatric Psychiatric exam: Present: normal affect, normal mood - Skin Skin exam: Present: warm, dry, intact, normal color. Absent: rash ED Course Vital Signs 06/13/21 20:05 Temperature 98.8 F Pulse Rate 74 Respiratory 16 Rate Blood Pressure 130/91 O2 Sat by Pulse 100 Oximetry Critical care attestation.: If time is entered above; I have spent that time in minutes in the direct care of this critically ill patient, excluding procedure time. ED Disposition Clinical Impression: URI (upper respiratory infection), Cephalgia Disposition: 01 HOME / SELF CARE / HOMELESS Is pt being admited?: No Does the pt Need Aspirin: No Condition: Stable Instructions: Upper Respiratory Infection, Adult, Viral Respiratory Infection, [id number] Prescriptions: Butalb/Acetaminophen/Caffeine [Fioricet 50-300-40 mg CAP] 1 cap PO Q8HR PRN #14 cap PRN Reason: Headache Referrals: PRIMARY CARE, [Primary Care Provider] - 3-5 Days
[2021-06-14 04:51] VITALS: BP 128/83
== END 2021-06-14 04:51 | disposition home or self-care (01) ==
LOC: ED 18:13
DX: J06.9 Acute upper respiratory infection, unspecified (principal); R51.9 Headache, unspecified; F12.90 Cannabis use, unspecified, uncomplicated; Z79.899 Other long term (current) drug therapy
CPT/HCPCS: 99282

== ENCOUNTER 2021-06-17 10:09 | Emergency (ER) | payer BC ==
[2021-06-17] MEDS ORDERED: dexAMETHasone 20 MG/5 ML VIAL IV ONE (11:31)
[2021-06-17] MEDS ORDERED: diphenhydrAMINE 50 MG/ML VIAL IV ONE (11:31)
[2021-06-17] MEDS ORDERED: FAMOTIDINE 20 MG/2 ML INJ IV ONE (11:31)
[2021-06-17] MEDS ORDERED: SODIUM CHLORIDE 0.9% 1000 ML 1,000 ML IV ONE (11:31)
[2021-06-17 12:38] LABS: Basophils % (Auto) 0.2 % (0.0-1.8); Eosinophils % (Auto) 0.1 % (0.0-4.3); Hematocrit 42.2 % (35.5-45.6); Hemoglobin 14.1 gm/dl (11.8-15.2); Lymphocytes # (Auto) 1.1 K/mm3 (1.2-5.4); Lymphocytes % (Auto) 17.5 % (13.4-35.0); Mean Corpuscular HGB Conc 33 % (32-34); Mean Corpuscular Volume 91 fl (84-94); Monocytes # (Auto) 0.3 K/mm3 (0.0-0.8); Monocytes % (Auto) 5.4 % (0.0-7.3); Platelet Count 205 K/mm3 (140-440); Red Blood Count 4.65 M/mm3 (3.65-5.03); Red Cell Distribution Width 14.4 % (13.2-15.2)
[2021-06-17 12:59] LABS: Alanine Aminotransferase 21 units/L (7-56); Albumin 3.9 g/dL (3.9-5); Blood Urea Nitrogen 13 mg/dL (9-20); Calcium 8.1 mg/dL (8.4-10.2); Hemolysis Index 1
[2021-06-17 13:00] LABS: BUN/Creatinine Ratio 19
--- NOTE | 2021-06-17 13:18 | Emergency Department Report ---
ED Allergic Reaction HPI - General Chief complaint: Skin Rash Stated complaint: HIVES ALL OVER BODY Time Seen by Provider: 06/17/21 11:27 Source: patient Mode of arrival: Ambulatory Limitations: No Limitations - History of Present Illness Initial Comments: This is a 36-year-old male nontoxic, well nourished in appearance, no acute signs of distress presents to the ED with c/o of hives x 2 days. Patient states it is itching and redness. Patient denies any drooling, hoarseness or facial swelling. Patient denies any trauma. She denies any fever, chills, nausea, vomiting, chest pain, shortness of breath, headache, stiff neck, numbness or tingling. Patient denies any allergies or significant PMH. MD Complaint: hives -: days(s) Exposure: unknown Symptoms: rash, itching. denies: facial swelling, lip swelling, difficulty swallowing, difficulty breathing, orolingual swelling, hoarseness, syncopy, dizziness, nausea, vomiting, abdominal pain Treatment Prior to Arrival: none Previous Allergy History: none - Related Data Previous Rx's Medication Instructions Recorded Last Taken Type Acetaminophen/Codeine [Tylenol #3] 1 tab PO Q6H PRN #15 tab 06/12/15 Unknown Rx Ibuprofen [Motrin 800 MG tab] 800 mg PO Q8HR PRN #30 tablet 06/12/15 Unknown Rx Sulfamethoxazole/Trimethoprim 1 each PO BID #20 tablet 06/12/15 Unknown Rx [Bactrim DS TAB] Ibuprofen [Motrin] 600 mg PO Q8H PRN #30 tablet 09/04/17 Unknown Rx Diphenoxylate/Atropine [Lomotil] 1 tab PO Q4H PRN #10 tablet 08/27/18 Unknown Rx Dicyclomine [Bentyl] 20 mg PO Q6H PRN #20 tablet 12/30/18 Unknown Rx Ondansetron [Zofran ODT TAB] 4 mg PO Q6HR PRN #20 tab.rapdis 12/30/18 Unknown Rx raNITIdine HCL [Zantac] 150 mg PO Q12H #20 tablet 12/30/18 Unknown Rx Ondansetron [Zofran Odt] 4 mg PO Q8HR PRN #15 tab.rapdis 05/18/19 Unknown Rx Butalb/Acetaminophen/Caffeine 1 cap PO Q8HR PRN #14 cap 06/14/21 Unknown Rx [Fioricet 50-300-40 mg CAP] Prednisone [predniSONE 10 mg 10 mg PO .TAPER #1 06/17/21 Unknown Rx (6-Day Pack, 21 Tabs)] diphenhydrAMINE [Benadryl CAP] 25 mg PO Q8HR PRN #12 capsule 06/17/21 Unknown Rx Allergies Allergy/AdvReac Type Severity Reaction Status Date / Time No Known Allergies Allergy Verified 10/24/18 11:16 ED Review of Systems ROS: Stated complaint: HIVES ALL OVER BODY Other details as noted in HPI Comment: All other systems reviewed and negative Constitutional: denies: chills, fever Eyes: denies: eye pain, eye discharge, vision change ENT: denies: ear pain, throat pain Respiratory: denies: cough, shortness of breath, wheezing Cardiovascular: denies: chest pain, palpitations Endocrine: no symptoms reported Gastrointestinal: denies: abdominal pain, nausea, diarrhea Genitourinary: denies: urgency, dysuria Musculoskeletal: denies: back pain, joint swelling, arthralgia Skin: rash. denies: lesions, change in color, change in hair/nails Neurological: denies: headache, weakness, paresthesias Psychiatric: denies: anxiety, depression Hematological/Lymphatic: denies: easy bleeding, easy bruising ED Past Medical Hx - Past Medical History Previous Medical History?: No - Surgical History Past Surgical History?: No - Social History Smoking Status: Never Smoker Substance Use Type: Marijuana - Medications Home Medications: Home Medications Medication Instructions Recorded Confirmed Last Taken Type Acetaminophen/Codeine [Tylenol #3] 1 tab PO Q6H PRN #15 tab 06/12/15 Unknown Rx Ibuprofen [Motrin 800 MG tab] 800 mg PO Q8HR PRN #30 tablet 06/12/15 Unknown Rx Sulfamethoxazole/Trimethoprim 1 each PO BID #20 tablet 06/12/15 Unknown Rx [Bactrim DS TAB] Ibuprofen [Motrin] 600 mg PO Q8H PRN #30 tablet 09/04/17 Unknown Rx Diphenoxylate/Atropine [Lomotil] 1 tab PO Q4H PRN #10 tablet 08/27/18 Unknown Rx Dicyclomine [Bentyl] 20 mg PO Q6H PRN #20 tablet 12/30/18 Unknown Rx Ondansetron [Zofran ODT TAB] 4 mg PO Q6HR PRN #20 tab.rapdis 12/30/18 Unknown Rx raNITIdine HCL [Zantac] 150 mg PO Q12H #20 tablet 12/30/18 Unknown Rx Ondansetron [Zofran Odt] 4 mg PO Q8HR PRN #15 tab.rapdis 05/18/19 Unknown Rx Butalb/Acetaminophen/Caffeine 1 cap PO Q8HR PRN #14 cap 06/14/21 Unknown Rx [Fioricet 50-300-40 mg CAP] Prednisone [predniSONE 10 mg 10 mg PO .TAPER #1 06/17/21 Unknown Rx (6-Day Pack, 21 Tabs)] diphenhydrAMINE [Benadryl CAP] 25 mg PO Q8HR PRN #12 capsule 06/17/21 Unknown Rx ED Physical Exam - General Limitations: No Limitations General appearance: alert, in no apparent distress - Head Head exam: Present: atraumatic, normocephalic - Eye Eye exam: Present: normal appearance - ENT ENT exam: Present: normal exam, normal orophraynx, other (no angioedema. no facial swelling. uvula midline) - Neck Neck exam: Present: normal inspection, full ROM. Absent: tenderness, meningismus, lymphadenopathy - Respiratory Respiratory exam: Present: normal lung sounds bilaterally. Absent: respiratory distress, wheezes, rales, rhonchi, stridor, chest wall tenderness, accessory muscle use, decreased breath sounds, prolonged expiratory - Cardiovascular Cardiovascular Exam: Present: normal rhythm, normal heart sounds. Absent: systolic murmur, diastolic murmur, rubs, gallop - Extremities Exam Extremities exam: Present: full ROM - Back Exam Back exam: Present: full ROM - Neurological Exam Neurological exam: Present: alert, oriented X3 - Psychiatric Psychiatric exam: Present: normal affect, normal mood - Skin Skin exam: Present: warm, dry, intact, rash, urticaria (bilateral arms, legs, and abdomen area). Absent: cyanosis, diaphoretic, erythema, vesicles, petechiae, pallor, abrasion, ecchymosis ED Course Vital Signs 06/17/21 10:16 Temperature 97.5 F L Pulse Rate 108 H Respiratory 20 Rate Blood Pressure 119/76 [Right] O2 Sat by Pulse 98 Oximetry - Reevaluation(s) Reevaluation #1: 06/17/21 13:33 Patient is speaking in full sentences with no signs of distress noted. ED Medical Decision Making - Lab Data Result diagrams: 06/17/21 12:13 06/17/21 12:13 - Medical Decision Making This is a 36-year-old female that presents with allergic reaction. Patient is stable was examined by me. There is no facial swelling. No angioedema. There is no cellulitis. No hoarseness. Patient received 1 L normal saline, Benadryl, Decadron, and Pepcid in the ED IV. Patient was instructed not to operate any machinery after discharge due to possible drowsiness of Benadryl. Patient stated that a family member will drive patient home after discharge. Patient is discharged with prednisone and Benadryl. Patient was referred to Follow-up with a primary care doctor in 3-5 days or if symptoms worsen and continue return to emergency room as soon as possible. At time of discharge, the patient does not seem toxic or ill in appearance. No acute signs of distress noted. Patient agrees to discharge treatment plan of care. No further questions noted by the patient. Critical care attestation.: If time is entered above; I have spent that time in minutes in the direct care of this critically ill patient, excluding procedure time. ED Disposition Clinical Impression: Allergic reaction Qualifiers: Encounter type: initial encounter Qualified Code(s): T78.40XA - Allergy, unspecified, initial encounter Disposition: 01 HOME / SELF CARE / HOMELESS Is pt being admited?: No Does the pt Need Aspirin: No Condition: Stable Instructions: Diphenhydramine capsules or tablets Additional Instructions: Follow-up with a primary care doctor in 3-5 days or if symptoms worsen and continue return to emergency room as soon as possible. Prescriptions: diphenhydrAMINE [Benadryl CAP] 25 mg PO Q8HR PRN #12 capsule PRN Reason: Itching Prednisone [predniSONE 10 mg (6-Day Pack, 21 Tabs)] 10 mg PO .TAPER #1 Referrals: MILTON FERRARA MD [Primary Care Provider] - 3-5 Days PRIMARY CARE, [Referring] - 3-5 Days Time of Disposition: 14:02
[2021-06-17 14:24] VITALS: BP 99/62
== END 2021-06-17 14:23 | disposition home or self-care (01) ==
LOC: ED 10:09
DX: T78.40XA Allergy, unspecified, initial encounter (principal); X58.XXXA Exposure to other specified factors, initial encounter; F12.90 Cannabis use, unspecified, uncomplicated
CPT/HCPCS: 36415; 80053; 85025; 86140; 96361; 96374; 96375; 99283; J1100; J1200; J3490; J7030; Q0162